=== PATIENT | female | born 1970 ===

== ENCOUNTER 2017-06-09 07:36 | Outpatient (CLI) | payer OTHER | END 2017-06-09 07:37 | disposition home or self-care (01) | LOC: BICMAMMO 07:36 | PROVIDERS: ATTEND Family Medicine | DX: Z12.31 Encounter for screening mammogram for malignant neoplasm of breast (principal); R92.1 Mammographic calcification found on diagnostic imaging of breast | CPT/HCPCS: 77067; G0202 ==